=== PATIENT | male | born 1965 | race Caucasian/White ===

== ENCOUNTER 2020-06-02 16:55 | Outpatient (REF) | payer OTHER, SELFPAY | END 2020-06-02 16:56 | disposition home or self-care (01) | LOC: HO.LAB 16:55 | PROVIDERS: Visit Provider Internal Medicine | DX: Z20.828 Contact with and (suspected) exposure to other viral communicable diseases (principal) | CPT/HCPCS: 36415; C9803; U0003 ==

== ENCOUNTER → 2023-05-25 08:11 | Outpatient (AMB) | payer OTHER, SELFPAY ==
--- NOTE | 2023-05-25 08:12 | MHC.OFFWIV ---
Intake Vital Signs 05/25/23 08:15 Height 6 ft Weight 241 lb BMI 32.7 BP 112/64 Blood Pressure Location Lt brachial Position Sitting Respiration 13 Pulse 81 Pulse Source Pulse Oximeter Pulse Oximetry (%) 96 Oxygen Delivery Method Room Air Intake Visit Reasons: rash on arm Intake Note: Patient is here for a rash on his arm x2-3 weeks. Rash started on the inside of the arms near the anticubital space on both arms, then spread to the upper arms, lower arms and hands. Patient reports he has tried cortisone cream OTC to assist with itching and allergy medications- Holly in daytime and benedryl at night time. The rash has persisted. Patient reports he started the rosuvastatin about 1 month ago. 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 Patient states he has not changed anything about his routine- soaps, shampoos, etc is all the same. 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 Rash started on the inside of the arms near the anticubital space on both arms, then spread to the upper arms, lower arms and hands. Patient reports he has tried cortisone cream OTC to assist with itching and allergy medications- Holly in daytime and benedryl at night time. The rash has persisted. He reports cortisone cream did help with the itching. Pt notes he started rosuvastatin about a month ago. [facility] Social History Patient Tobacco Use Status: Never used Tobacco Review of Systems Const Denies chills, Denies fatigue, Denies fever(s), Denies headache(s) and Denies weakness ENT Denies dizziness and Denies headache(s) Card Denies dyspnea Resp Denies cough, Denies dyspnea, Denies wheezing and Denies other (shortness of breath) Musc Denies numbness and Denies tingling Skin/Breast Reports rash Neuro Denies dizziness, Denies headache(s), Denies numbness, Denies tingling and Denies weakness Psych Denies anxiety and Denies depression Endo Denies fatigue Aller/Immun Denies wheezing Physical Exam Vital Signs: Last Vital Signs Pulse 81 05/25/23 08:15 Resp 13 05/25/23 08:15 BP 112/64 05/25/23 08:15 Pulse Ox 96 05/25/23 08:15 Oxygen Delivery Method Room Air 05/25/23 08:15 BMI result Body Mass Index 32.7 Const General: well developed; No acute distress Nutritional Appearance: well nourished Orientation/consciousness: patient oriented x3 HEENT Head: Yes normocephalic and Yes atraumatic Eyes General: appearance normal, both eyes and all related structures Pupils: Equal, round and reactive pupils present EOM: EOMs intact bilaterally Resp Effort & Inspection: normal respiratory effort Neuro General: patient oriented x3 and gait normal Cranial nerves: Yes Equal, round and reactive pupils present Psych Affect: normal affect Assessment & Plan Assessment & Plan (1) Rash: Code(s): R21 - Rash and other nonspecific skin eruption Plan: Rash?does?appear?to?be?somewhat?follicular?in?pattern. Timing?however?is?suspicious?for?allergy?to?statin?medication?which?he?began?only?a?week?or?so?prior?to?symptoms. Advised?he?use?Hibiclens?for?possible?folliculitis Will?give?him?a?script?for?prednisone?as?he?may?have?a?medication?allergy?and?I?have?advised?him?to?hold?the?statin?medication?for?7-10?days.??If?he?resumes?the?medication?and?allergy?returns,?should?discontinue?completely?and?he?should?of?course?dis cuss?with?his?PCP. Medications: New prednisone 40 mg (2 x 20 mg) PO DAILY 10 tabs 0RF 5 days Coding Level of Care Code New Pt Level 3 (89070) Diagnoses Rash R21
[2023-05-25 08:15] VITALS: BP 112/64; PULSE 81; RESP 13; O2SAT 96; BMI 32.7
== END ==
PROVIDERS: PCP Internal Medicine; Visit Provider Family Medicine
DX: R21 Rash and other nonspecific skin eruption (principal)
CPT/HCPCS: 99203